=== PATIENT | male | born 1960 | race Caucasian/White ===

== ENCOUNTER → 2020-09-14 | Outpatient (CLI) | payer OTHER | LOC: HEART 5 12:46 | DX: Z13.6 Encounter for screening for cardiovascular disorders (principal) ==

== ENCOUNTER → 2021-03-22 | Outpatient (CLI) | payer OTHER | LOC: ECHO 03-01 10:00 | DX: Z01.810 Encounter for preprocedural cardiovascular examination (principal); R00.2 Palpitations; I08.3 Combined rheumatic disorders of mitral, aortic and tricuspid valves; I27.20 Pulmonary hypertension, unspecified | CPT/HCPCS: ECHO; 93306 ==